=== PATIENT | male | born 1990 | race Two or more races ===

== ENCOUNTER 2023-06-29 18:54 | Emergency (ER) | payer OTHER ==
[~2023-06-29] VITALS: Ht 180.3 cm; Wt 127.8 kg
[~2023-06-29 18:54] MED LIST: NO HOME MEDICATIONS
[2023-06-29 19:29] LABS: BASO # 0.1 10^3/uL (0.0-0.2); BASO % 0.4 % (0.0-1.0); EOS # 0.3 10^3/uL (0.0-0.5); EOS % 2.6 % (0.0-3.0); HEMATOCRIT 37.3 % (42.0-52.0); LYMPH # 2.7 10^3/uL (1.5-5.0); LYMPH % 22.6 % (24.0-44.0); MEAN CORPUSCULAR HEMOGLOBIN 24.9 pg (27.0-33.0); MEAN CORPUSCULAR HGB CONC 32.2 g/dl (32.0-36.5); MEAN CORPUSCULAR VOLUME 77.4 fl (80.0-96.0); MONO # 0.9 10^3/uL (0.0-0.8); MONO % 7.7 % (2.0-8.0); NEUTROPHILS % 66.1 % (36.0-66.0); PLATELET COUNT, AUTOMATED 343 10^3/uL (150-450); RED BLOOD COUNT 4.82 10^6/uL (4.30-6.10); WHITE BLOOD COUNT 12.2 10^3/uL (4.0-10.0)
[2023-06-29] MEDS ORDERED: DIPH2.5T15 (20:01)
[2023-06-29] MEDS ORDERED: ONDA8TAB8 (20:01)
[2023-06-29] MEDS ORDERED: AMOX875T2 (20:01)
[2023-06-29 20:24] LABS: LIPASE 29 U/L (12-53)
[2023-06-29 20:25] LABS: CPK CREATINE PHOSPHOKINASE 535 U/L (46-171)
[2023-06-29 20:26] LABS: ALBUMIN 3.8 G/DL (3.2-5.2); ALKALINE PHOSPHATASE 110 U/L (46-116); ALT/SGPT 36 U/L (7.0-40); AST/SGOT 31 U/L (<34); BILIRUBIN,DIRECT < 0.1 MG/DL (<0.4); BILIRUBIN,TOTAL 0.2 MG/DL (0.3-1.2); BLOOD UREA NITROGEN 9 MG/DL (9-23); CALCIUM LEVEL 9.1 MG/DL (8.5-10.1); CARBON DIOXIDE LEVEL 24 MMOL/L (20-31); CHLORIDE LEVEL 107 MMOL/L (98-107); CK-MB VALUE MASS < 1.0 NG/ML (<3.6); CREATININE FOR GFR 0.99 MG/DL (0.70-1.30); GLOMERULAR FILTRATION RATE > 60.0 (>60); GLUCOSE, FASTING 124 MG/DL (60-100); MB/CK RELATIVE INDEX 0.18 (< OR =4); POTASSIUM SERUM 3.8 MMOL/L (3.5-5.1); SODIUM LEVEL 138 MMOL/L (136-145)
[2023-06-29 20:28] LABS: FREE T4 1.13 NG/DL (0.89-1.76); THYROID STIMULATING HORMONE 4.189 uIU/ML (0.55-4.78)
[2023-06-29 20:46] LABS: CK-MB VALUE MASS < 1.0 NG/ML (<3.6)
[2023-06-29 20:47] LABS: CPK CREATINE PHOSPHOKINASE 497 U/L (46-171)
[2023-06-29 21:01] VITALS: BP 116/56; TEMP 98; O2SAT 97
== END 2023-06-29 21:15 | disposition home or self-care (01) ==
LOC: M ED 18:54 → EDBD 18:54 → M ED 21:15
DX: R07.9 Chest pain, unspecified (principal); I49.40 Unspecified premature depolarization; J45.909 Unspecified asthma, uncomplicated; F41.9 Anxiety disorder, unspecified; F12.10 Cannabis abuse, uncomplicated; Z79.83 Long term (current) use of bisphosphonates; Z79.2 Long term (current) use of antibiotics; Z79.899 Other long term (current) drug therapy